=== PATIENT | male | born 1980 ===

== ENCOUNTER 2016-10-03 20:44 | Emergency (ER) | payer MEDICAID ==
[2016-10-03 20:50] VITALS: TEMP 98.6
[2016-10-03] MEDS ORDERED: Sodium Chloride 0.9% 1,000 ML IV STA (21:14)
--- NOTE | 2016-10-03 21:23 | ED PDOC ---
Arrival/HPI - General Chief Complaint: GI Problem Time Seen by Provider: 10/03/16 20:51 Historian: Patient - History of Present Illness Narrative History of Present Illness (Text): 10/03/16 21:19 36-year-old male presents today with vomiting and diarrhea since the middle of the night. Patient states yesterday he had sushi at about [address] which was the only thing different from everyone else. Patient states he ate dinner around 6: 00 and then in the middle the night he woke up with nausea vomiting and diarrhea. Patient states he hasn't had any episodes of vomiting since 11:00 this afternoon but is still having continued diarrhea. He denies abdominal pain at present time. Denies urinary symptoms. Denies fevers or chills. Denies chest pain or shortness of breath. No other sick contacts. No other complaints. Time/Duration: Other (10hrs) Symptom Onset: Sudden Symptom Course: Improving Quality: Cramping Severity Level: 2 Past Medical History - Provider Review Nursing Documentation Reviewed: Yes - Travel History Have you recently traveled outside [place] w/in the past 3 mons?: No - Tetanus Immunization Tetanus Immunization: Unknown - Psychiatric Hx Substance Use: No Family/Social History - Physician Review Nursing Documentation Reviewed: Yes Family/Social History: Unknown Family HX Smoking Status: Heavy Smoker > 10 Cigarettes Daily Hx Alcohol Use: Yes Frequency of alcohol use: Socially Hx Substance Use: No Allergies/Home Meds Allergies/Adverse Reactions: Allergies Penicillins Allergy (Verified 10/03/16 20:50) ANAPHYLAXIS strawberry Allergy (Verified 10/03/16 20:50) RASH Home Medications: Home Meds Medication Instructions Recorded Confirmed No Known Home Med 10/03/16 10/03/16 Review of Systems - Review of Systems Constitutional: absent: Fatigue, Fevers Respiratory: absent: SOB, Cough Cardiovascular: absent: Chest Pain, Palpitations Gastrointestinal: Abdominal Pain, Diarrhea, Nausea, Vomiting Genitourinary Male: absent: Dysuria, Frequency, Hematuria Musculoskeletal: absent: Arthralgias, Back Pain, Neck Pain Skin: absent: Rash, Pruritis Neurological: absent: Headache, Dizziness Psychiatric: absent: Anxiety, Depression Physical Exam Vital Signs Reviewed: Yes Vital Signs Temp Pulse Resp BP Pulse Ox 10/03/16 20:50 98.6 F 58 L 16 119/73 99 Temperature: Afebrile Blood Pressure: Normal Pulse: Regular Respiratory Rate: Normal Appearance: Positive for: Well-Appearing, Non-Toxic, Comfortable Pain Distress: None Mental Status: Positive for: Alert and Oriented X 3 - Systems Exam Head: Present: Atraumatic, Normocephalic Mouth: Present: Moist Mucous Membranes Neck: Present: Normal Range of Motion Respiratory/Chest: Present: Clear to Auscultation, Good Air Exchange. No: Respiratory Distress, Accessory Muscle Use Cardiovascular: Present: Regular Rate and Rhythm, Normal S1, S2. No: Murmurs Abdomen: Present: Normal Bowel Sounds. No: Tenderness, Distention, Peritoneal Signs, Rebound, Guarding Back: Present: Normal Inspection. No: CVA Tenderness Upper Extremity: Present: Normal Inspection. No: Cyanosis, Edema Lower Extremity: Present: Normal Inspection. No: Edema Neurological: Present: GCS=15 Skin: Present: Warm, Dry, Normal Color. No: Rashes Psychiatric: Present: Alert, Oriented x 3 Medical Decision Making ED Course and Treatment: 10/03/16 21:27 Patient is nontoxic well appearing with stable vital signs presenting with nausea vomiting and diarrhea since the middle of the night. Nausea and vomiting has resolved. Patient still complaining of diarrhea. CBC wnl CMP wnl Lipase wnl Urinalysis wnl Patient reassessment:pt feeling better vitals stable. abdomen non tender. denies any complaints. Discussed all results with patient in depth. advised f/u with pmd and return if any concerning symptoms develop. advised immediate return if symptoms worsen, persist or if new symptoms develop. Patient verbalizes understanding of discharge instructions and need for immediate followup. Impression: Vomiting and diarrhea Increase fluids Follow up with primary care physician within the next 2 days Return immediately if symptoms worsen persist or if new symptoms develop: High fevers, increasing pain, vomiting, diarrhea or any other concerning symptoms develop - Lab Interpretations Lab Results: 10/03/16 21:00 10/03/16 21:00 Lab Results 10/03/16 22:30: Urine Color Light yellow, Urine Appearance Clear, Urine pH 6.5, Ur Specific [place] <= 1.005, Urine Protein Negative, Urine Glucose (UA) Negative, Urine Ketones Negative, Urine Blood Negative, Urine Nitrate Negative, Urine Bilirubin Negative, Urine Urobilinogen 0.2, Ur Leukocyte Esterase Negative 10/03/16 21:00: WBC 8.5, RBC 4.59, Hgb 15.7, Hct 43.9, MCV 95.6, MCH 34.2, MCHC 35.8, RDW 13.2, Plt Count 310, MPV 9.2, Gran % 62.4, Lymph % (Auto) 29.0, [place] % (Auto) 5.6, Eos % (Auto) 2.5, Baso % (Auto) 0.5, Gran # 5.33, Lymph # 2.5, [place] # 0.5, Eos # 0.2, Baso # 0.04 10/03/16 21:00: Sodium 142, Potassium 3.7, Chloride 103, Carbon Dioxide 26, Anion Gap 17, BUN 14, Creatinine 0.9, Est GFR ( Amer) > 60, Est GFR (Non- Af Amer) > 60, Random Glucose 78, Calcium 9.8, Total Bilirubin 0.6, AST 22, ALT 28, Alkaline Phosphatase 51, Total Protein 7.2, Albumin 4.9 H, Globulin 2.3, Albumin/Globulin Ratio 2.1 H, Lipase 96 - Medication Orders Current Medication Orders: Discontinued Medications Sodium Chloride (Sodium Chloride 0.9%) 1,000 mls @ 999 mls/hr IV .Q1H1M STA Stop: 10/03/16 22:14 Last Admin: 10/03/16 21:19 Dose: 999 mls/hr Disposition/Present on Arrival - Present on Arrival Any Indicators Present on Arrival: No History of DVT/PE: No History of Uncontrolled Diabetes: No Urinary Catheter: No History of Decub. Ulcer: No History Surgical Site Infection Following: None - Disposition Have Diagnosis and Disposition been Completed?: Yes Diagnosis: Vomiting and diarrhea Disposition: HOME/ ROUTINE Disposition Time: 23:09 Patient Plan: Discharge Condition: GOOD Discharge Instructions (ExitCare): Acute Diarrhea (ED), Acute Nausea and Vomiting (ED) Additional Instructions: Increase fluids Follow up with primary care physician within the next 2 days Return immediately if symptoms worsen persist or if new symptoms develop: High fevers, increasing pain, vomiting, diarrhea or any other concerning symptoms develop Referrals: William Westfall MD [Staff Provider] - Follow up with primary Pardeep Rowland MD [Staff Provider] - Follow up with primary Forms: [employer] (Bengali), WORK NOTE
[2016-10-03 21:34] LABS: ALB/GLOB RATIO 2.1 (1.1-1.8); ALBUMIN 4.9 g/dL (3.0-4.8); ALT/SGPT 28 U/L (7-56); AST/SGOT 22 U/L (15-59); BLOOD UREA NITROGEN 14 mg/dL (7-21); CALCIUM 9.8 mg/dL (8.4-10.5); GFR AFRICAN-AMERICAN > 60; GFR NON-AFRICAN AMERICAN > 60; LIPASE 96 U/L (23-300)
[2016-10-03 21:39] LABS: BASO # 0.04 K/mm3 (0.0-2.0); BASO % 0.5 % (0.0-3.0); EOS # 0.2 (0.0-0.7); EOS % 2.5 % (1.5-5.0); GRAN # 5.33 (1.4-6.5); GRAN % 62.4 % (50.0-68.0); HEMOGLOBIN 15.7 g/dL (14.0-18.0); LYMPH # 2.5 (1.2-3.4); MEAN CELL VOLUME 95.6 fl (80.0-105.0); MEAN CORPUSCULAR HEMOGLOBIN 34.2 pg (25.0-35.0); MEAN CORPUSCULAR HGB CONC 35.8 g/dl (31.0-37.0); MEAN PLATELET VOLUME 9.2 fl (7.0-11.0); MONO # 0.5 (0.1-0.6); MONO % 5.6 % (1.0-6.0); PLATELET COUNT 310 10^3/uL (120.0-450.0); RBC 4.59 10^6/uL (3.5-6.1); RED CELL DISTRIBUTION WIDTH 13.2 % (11.5-14.5); WHITE BLOOD COUNT 8.5 10^3/ul (4.5-11.0)
[2016-10-03 22:44] LABS: PH,URINE 6.5 (4.7-8.0); URINE APPEARANCE CLEAR (CLEAR); URINE BILIRUBIN NEGATIVE (NEGATIVE); URINE BLOOD NEGATIVE (NEGATIVE); URINE COLOR LIGHT YELLOW (YELLOW); URINE GLUCOSE (UA) NEGATIVE (NEGATIVE); URINE LEUKOCYTE ESTERASE NEGATIVE Leu/uL (NEGATIVE); URINE NITRATE NEGATIVE (NEGATIVE); URINE PROTEIN NEGATIVE mg/dL (<30 mg/dL); URINE UROBILINOGEN 0.2 E.U./dL (<1 E.U./dL)
[2016-10-03 23:11] VITALS: BP 113/57; PULSE 62; RESP 18; O2SAT 100
== END 2016-10-03 23:14 | disposition home or self-care (01) ==
LOC: ED 20:44
DX: R11.10 Vomiting, unspecified (principal); R19.7 Diarrhea, unspecified
CPT/HCPCS: 80053; 81003; 83690; 85025; 96360; 99284; J7040